=== PATIENT | male | born 1955 | race Caucasian/White ===

== ENCOUNTER 2018-08-12 13:47 | Outpatient (CLI) | payer BC ==
--- NOTE | 2018-08-13 05:23 | XRAY Report ---
Reason: LEFT MIDDLE FINGER PAIN Procedure Date: 08/12/2018 Accession Number: [id number] / [id number] Procedure: XR - Finger(s) LT CPT Code: FULL RESULT: EXAM: LEFT THIRD DIGIT RADIOGRAPHY EXAM DATE: 08/12/2018 02:11 PM. CLINICAL HISTORY: LEFT MIDDLE FINGER PAIN. COMPARISON: None. TECHNIQUE: 3 views. FINDINGS: Bones: Normal. No fracture or bone lesion. Joints: Normal. No subluxations. Soft Tissues: Normal. No soft tissue swelling. IMPRESSION: Normal digit radiography. RADIA
== END 2018-08-12 13:48 | disposition home or self-care (01) ==
LOC: DI 13:47
PROVIDERS: ATTEND Specialist
DX: M79.645 Pain in left finger(s) (principal)
CPT/HCPCS: 73140

== ENCOUNTER 2020-04-15 21:01 | Emergency (ER) | payer MEDICARE, MEDICAID ==
--- NOTE | 2020-04-15 21:26 | ED Physician Documentation ---
PD HPI MALE - Stated complaint Stated Complaint: CAN'T EMPTY BLADDER - Chief complaint Chief Complaint: Abd Pain - History obtained from History obtained from: Patient - History of Present Illness Timing - onset: How many hours ago (6), Today Timing - duration: Hours (6) Timing - details: Gradual onset (He states he had outpatient laparoscopic hernia repair. It was supposed to be this morning but was slightly delayed so was early afternoon. Discharged from PACU approximately 3 PM. He has not urinated since surgery. States no cath during surgery.) Associated symptoms: Unable to urinate. No: Dysuria, Hematuria Similar symptoms before: Has not had sx before (some hesitancy at times but then typically can urinate with reasonable stream of urine.) Recently seen: Surgery (surgery today in [place] outpatient without problems.) Review of Systems Constitutional: denies: Fever Nose: denies: Rhinorrhea / runny nose, Congestion Throat: denies: Sore throat Respiratory: denies: Cough GI: denies: Vomiting, Diarrhea : reports: Unable to Void (just since surgery) PD PAST MEDICAL HISTORY - Past Medical History Cardiovascular: None Respiratory: None Neuro: None Endocrine/Autoimmune: None : Benign prostate hypertrophy - Present Medications Home Medications: Ambulatory Orders Medication Instructions Recorded Confirmed Atorvastatin Calcium 40 mg ORAL DAILY 04/15/20 04/15/20 - Allergies Allergies/Adverse Reactions: Allergies Allergy/AdvReac Type Severity Reaction Status Date / Time ibuprofen Allergy Nausea Verified 04/15/20 21:18 Penicillins Allergy Nausea Verified 04/15/20 21:18 PD ED PE NORMAL - Vitals Vital signs reviewed: Yes - General General: Alert and oriented X 3, Well developed/nourished, Other (appears uncomfortable due to lower abd fullness) - Neck Neck: Supple, no meningeal sign, No adenopathy - Cardiac Cardiac: RRR, No murmur - Respiratory Respiratory: Clear bilaterally - Abdomen Abdomen: Normal bowel sounds, Soft, Non distended, No organomegaly, Other (laparoscopic incisions in abd without bleeding nor swelling. There is suprapubic fullness with mild tenderness. ) - Male Male : Deferred - Rectal Rectal: Deferred - Back Back: No CVA TTP - Derm Derm: Normal color Results - Vitals Vitals: Vital Signs - 24 hr 04/15/20 04/15/20 04/15/20 21:12 21:17 21:47 Temperature 36.8 C 36.8 C 36.8 C Heart Rate 79 79 72 Respiratory 18 18 18 Rate Blood Pressure 125/73 125/73 124/72 O2 Saturation 97 97 98 04/15/20 04/15/20 22:17 22:44 Temperature 36.8 C 36.8 C Heart Rate 70 70 Respiratory 18 18 Rate Blood Pressure 125/70 125/70 O2 Saturation 99 100 Oxygen O2 Source Room air - Labs Labs: Laboratory Tests 04/15/20 22:23 Urine Color YELLOW Urine Clarity CLEAR Urine pH 6.0 Ur Specific [place] 1.010 Urine Protein NEGATIVE Urine Glucose (UA) NEGATIVE Urine Ketones NEGATIVE Urine Occult Blood MODERATE H Urine Nitrite NEGATIVE Urine Bilirubin NEGATIVE Urine Urobilinogen 0.2 (NORMAL) Ur Leukocyte Esterase NEGATIVE Urine RBC 6-10 H Urine WBC 0-3 Ur Squamous Epith Cells RARE Squamous Urine Bacteria None Seen Ur Microscopic Review INDICATED Urine Culture Comments NOT INDICATED PD MEDICAL DECISION MAKING - ED course Complexity details: re-evaluated patient (he is feeling better with drained bladder. Abd fullness is much improved. ), considered differential (Postop urinary retention. He does have history of some prostate enlargement but not on any current medicines.), d/w patient ED course: Discussed with the patient the potential of In-N-Out catheter to drain the bladder now versus a catheter in for a couple of days. He states his surgeon had directed him to come to the ER with the idea of a catheter for couple of days and he would see the patient in the office in 2 days for removal. The patient is okay going with that plan and preference of that over potentially hav ing to return for a repeat catheter in several hours if he is unable to go again. the catheter will also decrease bladder distension that would place pressure on recent surgical wound. Departure - Departure Disposition: 01 Home, Self Care Clinical Impression: Postoperative urinary retention Condition: Stable Record reviewed to determine appropriate education?: Yes Instructions: ED Catheter Care [place] Follow-Up: PAMELA DE LA ROSA MD [Primary Care Provider] - Comments: Leave the catheter in place until follow up with your surgeon in couple of days. Discharge Date/Time: 04/15/20 22:44
[2020-04-15] MEDS ORDERED: LIDOCAINE 2% URO-JET 5 ML SYRINGE UR STA (21:49)
[2020-04-15 22:44] VITALS: BP 125/70
[2020-04-15 22:47] LABS: BILIRUBIN,URINE NEGATIVE (NEGATIVE); GLUCOSE, URINE (UA) NEGATIVE (NEGATIVE); KETONES,URINE (UA) NEGATIVE (NEGATIVE); LEUKOCYTE ESTERASE, URINE NEGATIVE (NEGATIVE); NITRITE,URINE NEGATIVE (NEGATIVE); OCCULT BLOOD,URINE MODERATE (NEGATIVE); PROTEIN,URINE NEGATIVE (NEGATIVE); UROBILINOGEN,URINE 0.2 (NORMAL) E.U./dL (NORMAL)
[2020-04-15 23:01] LABS: CLARITY,URINE CLEAR (CLEAR)
[2020-04-15 23:03] LABS: BACTERIA,URINE None Seen /HPF (None Seen); SQUAMOUS EPITHELIAL CELL,UR RARE Squamous (<= Few)
== END 2020-04-15 22:44 | disposition home or self-care (01) ==
LOC: ED 21:01
DX: N99.89 Other postprocedural complications and disorders of genitourinary system (principal); R33.9 Retention of urine, unspecified; Y83.8 Other surgical procedures as the cause of abnormal reaction of the patient, or of later complication, without mention of misadventure at the time of the procedure; N40.0 Benign prostatic hyperplasia without lower urinary tract symptoms
CPT/HCPCS: 51702; 51798; 81001; 81003; 87086; 99282; 99283